=== PATIENT | male | born 1960 | race Caucasian/White ===

== ENCOUNTER 2023-04-11 13:45 | Emergency (ER) | payer BC, SELFPAY ==
[2023-04-11 13:47] VITALS: BP 141/84; PULSE 78; TEMP 37.1; O2SAT 98
--- NOTE | 2023-04-11 14:01 | ED.GENADUL_ITS ---
Discharge Plan Disposition Patient Disposition: Home Discharge Details Clinical Impression: Laceration of hand, left ED Provider: Gunjan Rodriguez Home Meds and New Rx's Prescriptions: New clindamycin HCl 150 mg capsule 450 mg PO TID 5 Days Qty: 45 0RF Discharge Instructions Instructions: Laceration (ED) Additional Instructions: Have sutures removed in 7 to 10 days. Keep clean and dry. After 24 hours you may wash under running soap and water. Allow to air dry at least 2 hours a day. Keep covered when outside. Please take the antibiotic as directed for the next 5 days. Return to the ER or be seen again for any signs of infection including increased red streaks, swelling drainage or concerns. Please take Tylenol or Ibuprofen with food every 4-6 hours as needed for pain and swelling. Discharge Data Discharge Date/Time-TO BE ENTERED AT DEPARTURE: 04/11/23 15:56 Medical Decision Making Approximately 30 minutes prior to arrival patient was working on a lawnmower and changing out some new blades when he excellently sliced the top of his left hand. He does have a laceration approximately 4 inches in length which is linear at the dorsal aspect of the base of his first second and third fingers. Laceration cleaned with chlorhexidine scrub anesthetized with 1% lidocaine with epi and topical let anesthesia achieved. Patient tolerated well. Laceration repaired with 7 four-point 0 Ethilon sutures simple interrupted wound well approximated. Will place in a splint to discourage flexion of fingers. Discussed home care patient to have sutures removed in [address] patient on clindamycin to treat empirically for infection. This chart was dictated with [employer] software. Please disregard any typos or oddities of phrase. HPI General Mode of arrival: ambulatory . Date/Time Provider Initiated Documentation: 04/11/23 13:46 . Limitations to Documentation: no limitations . Information obtained by: patient, RN notes reviewed and old records reviewed . HPI Narrative: Approximately 30 minutes prior to arrival patient was working on a lawnmower and changing out some new blades when he excellently sliced the top of his left hand. He does have a laceration approximately 4 inches in length which is linear at the dorsal aspect of the base of his first second and third fingers. He also has a old injury noted to his pinky finger which occurred approximately 24 hours ago after getting caught on a nail. Bleeding is controlled at this t arlette. He did apply pressure and a bandage prior to arrival. He reports he is up-to-date on his tetanus vaccination last in 2018 he has full range of motion and sensation noted to his hand and distal fingertips. Related Data Home Medications Medication Instructions Recorded Confirmed clindamycin HCl 150 mg capsule 450 mg PO TID 5 days #45 caps 04/11/23 Previous Rx's Medication Instructions Recorded clindamycin HCl 150 mg capsule 450 mg PO TID 5 days #45 caps 04/11/23 Allergies Allergy/AdvReac Type Severity Reaction Status Date / Time Sulfa (Sulfonamide Allergy Unverified 04/11/23 13:53 Antibiotics) General Stated Complaint: Laceration ROXY: 3 Review of Systems All systems reviewed & are unremarkable except as noted in HPI and below Integumentary/Breasts Skin/Breast: Reports wounds (Laceration) PFS All Active Problems (Updated 04/11/23 @ 15:37 by Gunjan Rodriguez NP) Laceration of hand, left (Acute) Social History Smoking/Tobacco Use Status: Never Smoking risk assessment performed?: Yes Substance use type: does not use Do you feel safe at home: Yes Do you feel safe in your relationship?: Yes Exam Extrem Left upper extremity: hand Details: laceration Hand/finger images: 1. Laceration, partial-thickness bleeding controlled approximately 4 inches in length. 2. Healing wound bleeding controlled from approximately 24 hours ago. Course Vital Signs Vital signs: Vital Signs Temperature 37.1 C 04/11/23 13:47 Pulse 78 04/11/23 13:47 Blood Pressure 141/84 H 04/11/23 13:47 Pulse Oximetry 98 04/11/23 13:47 Temperature 37.1 C 04/11/23 13:47 Temperature Source Skin 04/11/23 13:47 Pulse 78 04/11/23 13:47 Respiratory Effort Normal 04/11/23 13:51 Blood Pressure 141/84 H 04/11/23 13:47 Blood Pressure Position Sitting 04/11/23 13:47 Pulse Oximetry 98 04/11/23 13:47 Oxygen Delivery Method Room Air 04/11/23 13:47 Oxygen Flow Rate 0 04/11/23 13:47 Procedures Laceration Laceration 1: Site: hand Side (If applicable): left Size (cm): 4 Description: linear and clean Depth: simple, single layer Local Anesthetic: Lidocaine 1% and with Epi Amount of anesthesia used (mL): 3 Pre-repair: wound explored and irrigated extensively Skin layer closed with: nylon Size (cm): 4-0 Number of sutures: 7 Technique: simple, interrupted
[2023-04-11] MEDS: Lidocaine/Epinephri/Tetracaine Topical Gel 3 ML TP (14:33)
--- NOTE | 2023-04-11 15:01 | DI.RAD_ITS ---
Exam(s) XR HAND LT COMPLETE EXAM: XR HAND LT COMPLETE CLINICAL HISTORY: Injury, Laceration. TECHNIQUE: 2D digital imaging was performed of the left hand. Three views were obtained. AP, later al and oblique views were obtained. COMPARISON: No exams were available for comparison FINDINGS: BONES: No acute fracture is present. No bony destructive lesion is seen. There well corticated osseou s density seen in the dorsum of the wrist and at the base of the distal phalanx of the middle finger. JOINTS: No dislocation present. SOFT TISSUE: Normal. No radiopaque foreign bodies are seen. There is a bandage seen on the dorsum of the hand at the level of the MCP joint. IMPRESSION: No acute fracture, dislocation or radiopaque foreign body. DATA REPOSITORY: RADIATION DOSE DELIVERED:
--- NOTE | 2023-04-11 15:24 | DI.VRAD_ITS ---
PROCEDURE INFORMATION: Exam: XR Left Hand Exam date and time: 04/11/2023 2:55 PM Age: 63 years old Clinical indication: Other: Injury, laceration TECHNIQUE: Imaging protocol: Radiologic exam of the left hand. Views: 3 or more views. COMPARISON: No relevant prior studies available. FINDINGS: Bones/joints: Normal. Soft tissues: Normal. IMPRESSION: Unremarkable exam. Dictated and Authenticated by: Cierra Nicolas MD. Ordering:LUIS Hollins MD
[2023-04-11] MEDS: Clindamycin 150 MG CAP, 12 CAPS/BTL 450 MG PO (15:55)
== END 2023-04-11 15:56 | disposition home or self-care (01) ==
PROVIDERS: Emergency Provider Registered Nurse Emergency
DX: S61.412A Laceration without foreign body of left hand, initial encounter (principal); W29.3XXA Contact with powered garden and outdoor hand tools and machinery, initial encounter
CPT/HCPCS: 12002; 99283; 73130